=== PATIENT | female | born 1995 | race African-American/Black ===

== ENCOUNTER 2024-04-01 10:44 | Outpatient (CLI) | payer MEDICAID, SELFPAY ==
[2024-04-04 11:11] LABS: QNTFERON TB Mitogen Value > 10.00 IU/mL (.); QNTFERON TB Nil Value 0.02 IU/mL (.); QNTFERON TB1+ Ag Value 0.01 IU/mL (.); QNTFERON TB2+ Ag Value 0.03 IU/mL (.); QNTIFERON TB Positive Criteria Negative (Negative)
== END 2024-04-01 23:59 | disposition home or self-care (01) ==
DX: Z11.1 Encounter for screening for respiratory tuberculosis (principal)
CPT/HCPCS: 36415; 86480